=== PATIENT | female | born 1960 | race Caucasian/White ===

== ENCOUNTER 2018-05-09 14:16 | Outpatient (CLI) | payer OTHER | END 2018-05-09 14:17 | disposition home or self-care (01) | LOC: BICMAMMO 14:16 | PROVIDERS: ATTEND Obstetrics & Gynecology | DX: Z12.31 Encounter for screening mammogram for malignant neoplasm of breast (principal); R92.1 Mammographic calcification found on diagnostic imaging of breast; Z80.3 Family history of malignant neoplasm of breast | CPT/HCPCS: 77063; 77067 ==

== ENCOUNTER 2018-05-11 06:20 | Day surgery (SDC) | payer OTHER ==
[2018-05-10 10:56] VITALS: BMI 30.7
--- NOTE | 2018-05-11 05:57 | HP ---
SHORT-STAY HISTORY AND PHYSICAL HISTORY OF PRESENT ILLNESS: Ms. Nely Sethi is a very pleasant 57-year-old female, comes in for colonoscopy for colon cancer screening. The patient is a high risk for colon cancer because of the family history. The patient has nonspecific GI symptoms. Her bowel movements are regular. No evidence of any hematochezia or abdominal pain. ALLERGIES: NONE. MEDICAL ILLNESSES: 1. Seizure disorder. 2. Chronic anxiety. 3. Allergic rhinitis. 4. Colon polyp. 5. Depression. PHYSICAL EXAMINATION: VITAL SIGNS: Pulse is 73 and blood pressure 130/80. HEENT: Conjunctivae clear. CARDIOVASCULAR: First and second heart sounds heard. LUNGS: Clear to auscultation. ABDOMEN: Soft. No organomegaly. No tenderness. No masses. Bowel sounds are normal. EXTREMITIES: There is no edema. ADMITTING DIAGNOSIS: A 57-year-old female with family history of colon cancer. The patient is undergoing screening colonoscopy. Job ID: [id number]
[2018-05-11] MEDS ORDERED: PROPOFOL 200 MG/20 ML VIAL ONE (13:00)
--- NOTE | 2018-05-11 15:04 | OP ---
DATE OF PROCEDURE: 05/11/2018 OPERATIVE PROCEDURE: Colonoscopy with polypectomy, biopsy. PREOPERATIVE DIAGNOSIS: A 57-year-old female with family history of colon cancer. She is undergoing colonoscopy. POSTOPERATIVE DIAGNOSES: 1. Sessile polyp, cecum, status post snare cautery. 2. Scattered diverticular disease of sigmoid all the way to the transverse colon, mild. 3. Two small sessile sigmoid polyps. 4. Hypertrophied anal papillae. DESCRIPTION OF PROCEDURE: The patient was placed on her left lateral position and was given sedation by Anesthesia Department. A rectal exam was done before the scope was advanced into the rectum. No lesions felt on rectal exam. A [employer]ax video colonoscope was introduced into the rectum and advanced all the way to the cecum. The prep was good. The mucosa appeared normal throughout the colon with normal vascular pattern. The appendiceal orifice, ileocecal valve, no pathology seen. Over the cecum, a sessile polyp was seen. This was removed with snare cautery. The ascending colon, hepatic flexure, no pathology seen. The transverse colon, splenic flexure, descending colon, sigmoid colon shows scattered diverticula. There were two small sessile polyps seen in sigmoid colon. Both were removed with biopsy forceps. Retroflexion of scope in the rectum showed hypertrophied anal papillae. DISCHARGE PLANNING: This is a 57-year-old female with family history of colon cancer. She came for a colonoscopy. She underwent colonoscopy with polypectomy, biopsy. RECOMMENDATIONS: 1. The patient is advised to call me, if she develops abdominal pain, hematochezia. 2. In the absence of any referable symptoms, she will come back to me in 2 weeks. Job ID: [id number]
== END 2018-05-11 09:28 | disposition home or self-care (01) ==
LOC: SDC 06:20
PROVIDERS: ATTEND Internal Medicine Gastroenterology
DX: Z12.11 Encounter for screening for malignant neoplasm of colon (principal); D12.5 Benign neoplasm of sigmoid colon; K63.5 Polyp of colon; K57.30 Diverticulosis of large intestine without perforation or abscess without bleeding; K62.89 Other specified diseases of anus and rectum; G40.909 Epilepsy, unspecified, not intractable, without status epilepticus; F41.9 Anxiety disorder, unspecified; J30.9 Allergic rhinitis, unspecified; F32.9 Major depressive disorder, single episode, unspecified; Z80.0 Family history of malignant neoplasm of digestive organs; Z79.82 Long term (current) use of aspirin; Z79.899 Other long term (current) drug therapy
CPT/HCPCS: 88305; J2704

== ENCOUNTER 2019-04-10 08:02 | Outpatient (CLI) | payer OTHER ==
[2019-04-10 08:43] LABS: #Basophils 0.1 thou/uL (0.0-0.2); #Eosinphils 0.1 thou/uL (0.0-0.7); #Lymphocytes 1.5 thou/uL (1.20-3.40); #Monocytes 0.4 thou/uL (0.11-0.59); #Neutrophils 2.8 thou/uL (1.40-6.50); %Basophils 2.7 % (0.0-1.0); %Eosinophils 1.9 % (0.0-10.0); %Lymphocytes 30.9 % (21.0-51.0); %Monocytes 8.8 % (0.0-10.0); %Neutrophils 55.8 % (42.0-75.0); Mean Corpuscular HGB CONC 32.2 g/dL (32.0-36.0); Mean Corpuscular Volume 96.2 fL (78.0-98.0); Mean Platelet Volume 8.5 fL (7.4-10.4); Platelet Count 244 thou/uL (130-400); RBC Distribution Width 11.9 % (11.5-14.5); Red Blood Cell (RBC) Count 4.53 mill/uL (4.20-5.40)
--- NOTE | 2019-04-10 08:43 | ULT ---
Gallbladder ultrasound: Multiple grayscale images of right upper quadrant obtained according to protocol. INDICATION: Pain FINDINGS: Liver: Hepatic steatosis. Gallbladder: Cholelithiasis. Gallbladder wall: Normal. Spencer's Sign: Negative Common bile duct is normal. Ascites: None IMPRESSION: Cholelithiasis. Hepatic steatosis.
[2019-04-10 08:52] LABS: ALT (SGPT) 49 U/L (8-55); AST (SGOT) 33 U/L (5-34); Albumin 4.2 g/dL (3.5-5.0); Alkaline Phosphatase 81 U/L (40-110); Anion Gap 13 mmol/L (10-20); BUN (Urea Nitrogen) 17 mg/dL (9.8-20.1); Bilirubin, Total 0.8 mg/dL (0.2-1.2); Calc. Creatinine Clearance 0 mL/min (70-130); Calcium 9.2 mg/dL (7.8-10.44); Carbon Dioxide 23 mmol/L (22-29); Chloride 110 mmol/L (98-107); Estimated GFR-MDRD 73; Globulin 2.8 g/dL (2.4-3.5); Glucose 112 mg/dL (70-105); Lipase 31 U/L (8-78); Potassium 3.9 mmol/L (3.5-5.1); Sodium 142 mmol/L (136-145)
[2019-04-10 13:50] LABS: Gamma GT (GGT) 52 U/L (9-36)
== END 2019-04-10 08:03 | disposition home or self-care (01) ==
LOC: SCSULT 08:02
PROVIDERS: ATTEND Family Medicine
DX: K80.20 Calculus of gallbladder without cholecystitis without obstruction (principal); K52.9 Noninfective gastroenteritis and colitis, unspecified
CPT/HCPCS: 36415; 76705; 80053; 82977; 83690; 85025

== ENCOUNTER 2019-07-31 10:07 | Outpatient (CLI) | payer OTHER ==
--- NOTE | 2019-07-31 10:27 | RAD ---
TWO VIEW CHEST: HISTORY: Melanoma. FINDINGS: Lungs are clear. Heart and mediastinum appear normal. Osseous structures appear normal. IMPRESSION: Unremarkable chest. POS: H
== END 2019-07-31 10:08 | disposition home or self-care (01) ==
LOC: BICRAD 10:07
DX: C43.9 Malignant melanoma of skin, unspecified (principal)
CPT/HCPCS: 71046

== ENCOUNTER 2023-02-16 09:34 | Outpatient (CLI) | payer BC ==
[2023-02-16 11:01] LABS: #Basophils 0.1 10x3/uL (0.0-0.2); #Eosinphils 0.3 10x3/uL (0.0-0.5); #Monocytes 0.7 10x3/uL (0.0-1.1); #Neutrophils 4.3 10x3/uL (1.5-8.4); %Basophils 1.4 % (0.0-2.0); %Eosinophils 3.7 % (0.0-6.0); %Monocytes 9.4 % (0.0-10.0); %Neutrophils 58.4 % (40.0-75.0); Hematocrit 40.8 % (34.9-44.5); Hemoglobin 13.5 g/dL (12.0-15.5); Mean Corpuscular HGB CONC 33.1 g/dL (32.0-36.0); Mean Corpuscular Hemoglobin 30.1 pg (27.0-33.0); Mean Corpuscular Volume 90.9 fl (81.6-98.3); Mean Platelet Volume 9.9 fl (7.4-10.4); Platelet Count 332 10x3/uL (150-450); RBC Distribution Width 13.1 % (11.5-14.5); Red Blood Cell (RBC) Count 4.49 10x6/uL (3.90-5.03); White Blood Cell (WBC) Count 7.4 10x3/uL (3.5-10.5)
[2023-02-16 11:22] LABS: Prothrombin Time 10.3 sec (9.5-12.1)
[2023-02-16 11:27] LABS: Anion Gap 14 mmol/L (10-20); BUN (Urea Nitrogen) 17 mg/dL (9.8-20.1); Calc. Creatinine Clearance 0 mL/min (70-130); Calcium 9.8 mg/dL (7.8-10.44); Carbon Dioxide 29 mmol/L (23-31); Chloride 100 mmol/L (98-107); Estimated GFR 75; Glucose 92 mg/dL (80-115); Potassium 4.3 mmol/L (3.5-5.1); Sodium 139 mmol/L (136-145)
== END 2023-02-16 09:35 | disposition home or self-care (01) ==
LOC: LABBT 09:34
PROVIDERS: ATTEND Orthopaedic Surgery
DX: Z01.818 Encounter for other preprocedural examination (principal); M17.11 Unilateral primary osteoarthritis, right knee
CPT/HCPCS: 80048; 85025; 85610; 87081; 93005; 93010

== ENCOUNTER 2023-02-21 05:28 | Observation (INO) | payer BC ==
[2023-02-16 10:23] VITALS: BMI 29.6
[2023-02-21] MEDS ORDERED: Vancomycin (BATCH) 1.5 GRAM/300 ML BAG ONE (05:51)
[2023-02-21] MEDS ORDERED: Sodium Chloride 0.9% 100 ML ONE ×2 (05:51→06:52)
[2023-02-21] MEDS ORDERED: Tranexamic Acid 1,000 MG/10 ML VIAL ONE (05:51)
[2023-02-21] MEDS ORDERED: fentaNYL 50 mcg/mL 1 mL Vial ONE ×4 (06:19→10:36)
[2023-02-21] MEDS ORDERED: Midazolam HCl 2 mg/2 ml Vial ONE ×2 (06:20→06:39)
[2023-02-21] MEDS ORDERED: Bupivacaine PF 0.5% 30 ML VIAL ONE ×2 (06:26→06:39)
[2023-02-21] MEDS ORDERED: CEFAZOLIN 2 GM VIAL ONE (06:52)
[2023-02-21] MEDS ORDERED: fentaNYL 50 mcg/mL 1 mL Vial SLOW IVP PRN ×3 (06:56→07:39)
[2023-02-21] MEDS ORDERED: Zolpidem Tartrate 5 MG TAB PO PRN ×2 (06:56→07:45)
[2023-02-21] MEDS ORDERED: HYDROcodone/Acetaminophen 10/325 mg Tablet PO PRN ×3 (06:56→07:45)
[2023-02-21] MEDS ORDERED: Promethazine HCl 25 MG/ML VIAL IM PRN ×3 (06:56→07:59)
[2023-02-21] MEDS ORDERED: Ondansetron PF 4 MG/2 ML Vial IVP PRN ×2 (06:56→07:45)
[2023-02-21] MEDS ORDERED: Acetaminophen 325 MG TAB PO PRN (06:56)
[2023-02-21] MEDS ORDERED: diphenhydrAMINE 25 MG CAP PO PRN (06:56)
[2023-02-21] MEDS ORDERED: Azelastine 137 MCG/NASAL Spray 30 ML NS PRN (06:59)
[2023-02-21] MEDS ORDERED: Albuterol 200 PUFF (6.7GM INHALER) INH PRN (06:59)
[2023-02-21] MEDS ORDERED: Lorazepam 0.5 MG TAB PO PRN (06:59)
[2023-02-21] MEDS ORDERED: Propofol 500 MG/50 ML VIAL ONE (07:09)
[2023-02-21] MEDS ORDERED: ePHEDrine Sulfate 50 MG/10 ML VIAL ONE (07:33)
[2023-02-21] MEDS ORDERED: Ketorolac Tromethamine 30 MG/ML VIAL ONE (07:33)
[2023-02-21] MEDS ORDERED: Ondansetron PF 4 MG/2 ML Vial ONE (07:33)
[2023-02-21] MEDS ORDERED: Bupivacaine HCl 0.5%/Epinephrine 1:200,000/PF 30 ml Vial ONE (07:33)
[2023-02-21] MEDS ORDERED: PROPOFOL 200 MG/20 ML VIAL ONE (07:33)
[2023-02-21] MEDS ORDERED: traMADol HCl 50 MG TAB PO PRN ×2 (07:45)
[2023-02-21] MEDS ORDERED: Ropivacaine 0.2% 550 ML 550 ML NERVE BLCK SCH (07:45)
[2023-02-21] MEDS ORDERED: Ondansetron HCl/PF 4 MG/2 ML Vial IVP PRN (07:59)
[2023-02-21] MEDS ORDERED: Meperidine HCl/PF 25 MG/ML VIAL SLOW IVP PRN (07:59)
[2023-02-21] MEDS ORDERED: HYDROmorphone 2 MG/ML VIAL SLOW IVP PRN (07:59)
[2023-02-21] MEDS ORDERED: PROPOFOL 20 ML ONE (08:02)
[2023-02-21] MEDS: Potassium Chloride 10 MEQ TAB PO SCH (11:07)
[2023-02-21] MEDS: Furosemide 20 MG TAB PO SCH (11:08)
[2023-02-21] MEDS: Hydrochlorothiazide 25 MG TAB PO SCH (11:08)
[2023-02-21] MEDS: Losartan 25 MG TAB PO SCH (11:08)
[2023-02-21] MEDS: Aspirin 81 mg Enteric Coated Tablet PO SCH ×2 (11:08→20:58)
[2023-02-21] MEDS: Atorvastatin Calcium 20 MG TAB PO SCH (11:08)
[2023-02-21] MEDS: Gabapentin 300 MG CAP PO SCH ×3 (11:08→20:58)
[2023-02-21] MEDS: Montelukast Sodium 10 mg Tablet PO SCH (11:09)
[2023-02-21] MEDS: Ketorolac Tromethamine 30 MG/ML VIAL IVP SCH ×3 (12:32→23:06)
[2023-02-21] MEDS: Sodium Chloride 0.9% 1,000 ML IV SCH ×2 (13:14→23:04)
[2023-02-21] MEDS ORDERED: Ketorolac Tromethamine 30 MG/ML VIAL IVP SCH (14:00)
[2023-02-21] MEDS: HYDROcodone/Acetaminophen 10/325 mg Tablet PO PRN ×2 (15:13→20:59)
[2023-02-21] MEDS: CEFAZOLIN 2 GM in Sodium Chloride 0.9% 100 ML IVPB SCH ×2 (15:14→23:06)
[2023-02-21] MEDS ORDERED: traZODone HCl 50 MG TAB PO SCH (21:00)
[2023-02-22] MEDS: Sodium Chloride 0.9% 1,000 ML IV SCH (03:09)
[2023-02-22] MEDS: Ketorolac Tromethamine 30 MG/ML VIAL IVP SCH ×2 (05:41→12:25)
[2023-02-22 06:47] LABS: Hematocrit 33.7 % (36.0-47.0); Hemoglobin 10.7 g/dL (12.0-16.0); Mean Corpuscular HGB CONC 31.8 g/dL (32.0-36.0); Mean Corpuscular Hemoglobin 30.4 pg (27.0-31.0); Mean Corpuscular Volume 95.7 fl (78.0-98.0); Mean Platelet Volume 9.5 fL (7.4-10.4); Platelet Count 202 10x3/uL (130-400); RBC Distribution Width 13.3 % (11.5-14.5); Red Blood Cell (RBC) Count 3.52 mill/uL (4.20-5.40)
[2023-02-22] MEDS ORDERED: Ferrous Gluconate 324 MG TAB PO SCH (08:00)
[2023-02-22] MEDS ORDERED: Senokot S 8.6-50 MG TAB PO SCH (09:00)
[2023-02-22] MEDS ORDERED: Multivitamin W/ Minerals 1 TAB PO SCH (09:00)
[2023-02-22] MEDS: HYDROcodone/Acetaminophen 10/325 mg Tablet PO PRN (09:59)
[2023-02-22] MEDS: Aspirin 81 mg Enteric Coated Tablet PO SCH (10:00)
[2023-02-22] MEDS: Losartan 25 MG TAB PO SCH (10:01)
[2023-02-22] MEDS: Hydrochlorothiazide 25 MG TAB PO SCH (10:02)
[2023-02-22] MEDS: Montelukast Sodium 10 mg Tablet PO SCH (10:02)
[2023-02-22] MEDS: Potassium Chloride 10 MEQ TAB PO SCH (10:02)
[2023-02-22] MEDS: Furosemide 20 MG TAB PO SCH (10:02)
[2023-02-22] MEDS: Gabapentin 300 MG CAP PO SCH (10:03)
[2023-02-22] MEDS: Atorvastatin Calcium 20 MG TAB PO SCH (10:03)
[2023-02-22 11:50] VITALS: BP 132/74; TEMP 98.4
== END 2023-02-22 12:30 | disposition home or self-care (01) ==
LOC: SDC 05:28 → SURG A 10:07
PROVIDERS: ADMIT Orthopaedic Surgery; ATTEND Orthopaedic Surgery
PROC: 0SRC0JZ Replacement of Right Knee Joint with Synthetic Substitute, Open Approach (ICD-10-PCS; principal; 2023-02-21)
DX: M17.11 Unilateral primary osteoarthritis, right knee (principal); Z87.891 Personal history of nicotine dependence
CPT/HCPCS: 36415; 85027; A4306; C1776; J1885; J2250; J2405; J2704; J2795; J3010; J3370; J3490; S0020

== ENCOUNTER 2023-07-27 13:18 | Outpatient (CLI) | payer BC ==
[2023-07-27 14:26] LABS: #Basophils 0.1 10x3/uL (0.0-0.2); #Eosinphils 0.2 10x3/uL (0.0-0.5); #Monocytes 0.6 10x3/uL (0.0-1.1); #Neutrophils 3.3 10x3/uL (1.5-8.4); %Basophils 1.8 % (0.0-2.0); %Eosinophils 2.9 % (0.0-6.0); %Lymphocytes 33.7 % (18.0-47.0); %Monocytes 8.9 % (0.0-10.0); %Neutrophils 52.5 % (40.0-75.0); Hematocrit 39.5 % (34.9-44.5); Hemoglobin 12.9 g/dL (12.0-15.5); Mean Corpuscular HGB CONC 32.7 g/dL (32.0-36.0); Mean Corpuscular Hemoglobin 28.9 pg (27.0-33.0); Mean Corpuscular Volume 88.4 fl (81.6-98.3); Mean Platelet Volume 9.5 fl (7.4-10.4); Platelet Count 308 10x3/uL (150-450); RBC Distribution Width 13.2 % (11.5-14.5); Red Blood Cell (RBC) Count 4.47 10x6/uL (3.90-5.03); White Blood Cell (WBC) Count 6.2 10x3/uL (3.5-10.5)
[2023-07-27 14:35] LABS: Prothrombin Time 10.4 sec (9.5-12.1)
[2023-07-27 14:41] LABS: Anion Gap 13 mmol/L (10-20); BUN (Urea Nitrogen) 17 mg/dL (9.8-20.1); Calc. Creatinine Clearance 0 mL/min (70-130); Calcium 9.6 mg/dL (7.8-10.44); Carbon Dioxide 28 mmol/L (23-31); Chloride 102 mmol/L (98-107); Estimated GFR 80; Glucose 123 mg/dL (80-115); Potassium 3.5 mmol/L (3.5-5.1); Sodium 139 mmol/L (136-145)
== END 2023-07-27 13:19 | disposition home or self-care (01) ==
LOC: LABBT 13:18
PROVIDERS: ATTEND Orthopaedic Surgery
DX: Z01.818 Encounter for other preprocedural examination (principal); M17.12 Unilateral primary osteoarthritis, left knee
CPT/HCPCS: 80048; 85025; 85610; 87081; 93005; 93010

== ENCOUNTER 2023-07-31 05:35 | Observation (INO) | payer BC ==
[2023-07-31] MEDS ORDERED: Vancomycin (BATCH) 1.5 GM/300 ML BAG ONE (06:09)
[2023-07-31] MEDS ORDERED: Tranexamic Acid 1,000 MG/10 ML VIAL ONE (06:09)
[2023-07-31] MEDS ORDERED: Sodium Chloride 0.9% 100 ML ONE ×2 (06:09→06:51)
[2023-07-31] MEDS ORDERED: Famotidine/PF 20 mg/2ml Vial ONE (06:15)
[2023-07-31] MEDS ORDERED: Midazolam HCl 2 mg/2 ml Vial ONE (06:20)
[2023-07-31] MEDS ORDERED: PROPOFOL 20 ML ONE (06:20)
[2023-07-31] MEDS ORDERED: fentaNYL PF 100 MCG/2 ML SYRINGE ONE (06:20)
[2023-07-31] MEDS ORDERED: Lidocaine 1% PF 5 ML VIAL ONE (06:21)
[2023-07-31] MEDS ORDERED: diphenhydrAMINE 25 MG CAP PO PRN (06:48)
[2023-07-31] MEDS ORDERED: Zolpidem Tartrate 5 MG TAB PO PRN (06:48)
[2023-07-31] MEDS ORDERED: Promethazine HCl 25 MG/ML VIAL IM PRN ×3 (06:48→08:15)
[2023-07-31] MEDS ORDERED: Acetaminophen 325 MG TAB PO PRN (06:48)
[2023-07-31] MEDS ORDERED: fentaNYL 50 mcg/mL 1 mL Vial SLOW IVP PRN ×2 (06:48→07:46)
[2023-07-31] MEDS ORDERED: Ondansetron PF 4 MG/2 ML Vial IVP PRN ×2 (06:48→07:45)
[2023-07-31] MEDS ORDERED: Non-Formulary Item 1 EACH (Celecoxib [Celebrex] 200 MG Capsule) PO PRN (06:50)
[2023-07-31] MEDS ORDERED: Albuterol 200 PUFF (6.7GM INHALER) INH PRN (06:50)
[2023-07-31] MEDS ORDERED: Lorazepam 0.5 MG TAB PO PRN (06:50)
[2023-07-31] MEDS ORDERED: CEFAZOLIN 2 GM VIAL ONE (06:51)
[2023-07-31] MEDS ORDERED: Bupivacaine PF 0.5% 30 ML VIAL ONE ×2 (06:51→08:40)
[2023-07-31] MEDS ORDERED: oxyCODONE/Acetaminophen 5 mg/325 mg Tablet PO PRN (06:55)
[2023-07-31] MEDS ORDERED: CeleCOXIB 100 MG CAP PO PRN (07:10)
[2023-07-31] MEDS ORDERED: fentaNYL 50 mcg/mL 1 mL Vial ONE ×5 (07:14→10:25)
[2023-07-31] MEDS ORDERED: ePHEDrine Sulfate 50 MG/10 ML VIAL ONE (07:35)
[2023-07-31] MEDS ORDERED: oxyCODONE 5 MG TAB PO PRN (07:45)
[2023-07-31] MEDS ORDERED: traMADol HCl 50 MG TAB PO PRN ×2 (07:45)
[2023-07-31] MEDS ORDERED: Ropivacaine 0.2% 550 ML 550 ML NERVE BLCK SCH (07:45)
[2023-07-31] MEDS ORDERED: Dexamethasone 4 mg/ml Vial ONE (07:59)
[2023-07-31] MEDS ORDERED: Ketorolac Tromethamine 30 MG (1 mL) VIAL ONE (07:59)
[2023-07-31] MEDS ORDERED: Ondansetron PF 4 MG/2 ML Vial ONE (07:59)
[2023-07-31] MEDS ORDERED: Meperidine HCl/PF 25 MG/ML VIAL SLOW IVP PRN (08:15)
[2023-07-31] MEDS ORDERED: Ondansetron HCl/PF 4 MG/2 ML Vial IVP PRN (08:15)
[2023-07-31] MEDS ORDERED: HYDROmorphone 2 MG/ML VIAL SLOW IVP PRN (08:15)
[2023-07-31] MEDS ORDERED: Non-Formulary Item 1 EACH (Multivit-Min/Iron/Folic/Lutein [Centrum Silver Women] 1 TABLET PO SCH (09:00)
[2023-07-31] MEDS ORDERED: Azelastine 137 MCG/NASAL Spray 30 ML NS SCH (09:00)
[2023-07-31] MEDS ORDERED: Gabapentin 300 MG CAP PO SCH (09:00)
[2023-07-31] MEDS ORDERED: Aspirin 81 mg Enteric Coated Tablet PO SCH (09:00)
[2023-07-31] MEDS ORDERED: Non-Formulary Item 1 EACH (Cetirizine Hcl [All Day Allergy Relief] 10 MG Capsule) PO SCH (09:00)
[2023-07-31] MEDS ORDERED: Non-Formulary Item 1 EACH (Olmesartan/Hydrochlorothiazide [Olmesartan-Hctz 20-12.5 Mg Tab PO SCH (09:00)
[2023-07-31] MEDS ORDERED: OLMESARTAN HCTZ PO SCH (09:00)
[2023-07-31] MEDS ORDERED: Non-Formulary Item 1 EACH (Omeprazole [Omeprazole] 20 MG Tablet.Dr) PO SCH (09:00)
[2023-07-31] MEDS: Ferrous Gluconate 324 MG TAB PO SCH (12:35)
[2023-07-31] MEDS: Azelastine 137 MCG/NASAL Spray 30 ML NS SCH (12:35)
[2023-07-31] MEDS: Aspirin 81 mg Enteric Coated Tablet PO SCH (12:35)
[2023-07-31] MEDS: Furosemide 20 MG TAB PO SCH (12:35)
[2023-07-31] MEDS: Gabapentin 300 MG CAP PO SCH ×2 (12:35→21:08)
[2023-07-31] MEDS: Atorvastatin Calcium 20 MG TAB PO SCH (12:35)
[2023-07-31] MEDS: Senokot S 8.6-50 MG TAB PO SCH (12:36)
[2023-07-31] MEDS: Loratadine 10 MG TAB PO SCH (12:36)
[2023-07-31] MEDS: Potassium Chloride 10 MEQ TAB PO SCH (12:36)
[2023-07-31] MEDS: Multivitamin W/ Minerals 1 TAB PO SCH (12:36)
[2023-07-31] MEDS: Sodium Chloride 0.9% 1,000 ML IV SCH (12:37)
[2023-07-31] MEDS: Acetaminophen 500 MG TAB PO SCH (12:43)
[2023-07-31] MEDS: Ketorolac Tromethamine 30 MG (1 mL) VIAL IVP SCH (12:44)
[2023-07-31 13:30] VITALS: BMI 29.6
[2023-07-31] MEDS ORDERED: Ketorolac Tromethamine 30 MG (1 mL) VIAL IVP SCH (14:00)
[2023-07-31] MEDS: CEFAZOLIN 2 GM in Sodium Chloride 0.9% 100 ML IVPB SCH (15:09)
[2023-07-31] MEDS: oxyCODONE 5 MG TAB PO PRN (15:15)
[2023-07-31] MEDS: Montelukast Sodium 10 mg Tablet PO SCH (21:10)
[2023-07-31] MEDS: traZODone HCl 50 MG TAB PO SCH (21:10)
[2023-07-31] MEDS: Zolpidem Tartrate 5 MG TAB PO PRN (23:37)
[2023-08-01 04:59] LABS: Hematocrit 31.7 % (36.0-47.0); Hemoglobin 10.1 g/dL (12.0-16.0); Mean Corpuscular HGB CONC 31.9 g/dL (32.0-36.0); Mean Corpuscular Hemoglobin 29.3 pg (27.0-31.0); Mean Corpuscular Volume 91.9 fl (78.0-98.0); Mean Platelet Volume 10.3 fL (7.4-10.4); Platelet Count 224 10x3/uL (130-400); RBC Distribution Width 13.5 % (11.5-14.5); Red Blood Cell (RBC) Count 3.45 mill/uL (4.20-5.40); White Blood Cell (WBC) Count 9.1 10x3/uL (4.8-10.8)
[2023-08-01 08:34] VITALS: BP 137/85; TEMP 98.2
[2023-08-01] MEDS: Hydrochlorothiazide 25 MG TAB PO SCH (09:29)
[2023-08-01] MEDS: Losartan 25 MG TAB PO SCH (09:29)
== END 2023-08-01 10:50 | disposition home or self-care (01) ==
LOC: SDC 05:35 → SURG B 06:48
PROVIDERS: ADMIT Orthopaedic Surgery; ATTEND Orthopaedic Surgery
PROC: 0SRD0JZ Replacement of Left Knee Joint with Synthetic Substitute, Open Approach (ICD-10-PCS; principal; 2023-08-01)
DX: M17.12 Unilateral primary osteoarthritis, left knee (principal); G40.909 Epilepsy, unspecified, not intractable, without status epilepticus; G43.909 Migraine, unspecified, not intractable, without status migrainosus; J45.909 Unspecified asthma, uncomplicated; Z80.0 Family history of malignant neoplasm of digestive organs; Z98.890 Other specified postprocedural states; Z87.891 Personal history of nicotine dependence; Z79.899 Other long term (current) drug therapy; Z96.651 Presence of right artificial knee joint
CPT/HCPCS: 36415; 85027; A4306; C1776; J0665; J1100; J1885; J2250; J2405; J2704; J2795; J3010; J3370; J3490; S0028

== ENCOUNTER 2025-05-27 14:23 | Outpatient (CLI) | payer BC | END 2025-05-27 14:24 | disposition home or self-care (01) | LOC: BICMAMMO 14:23 | PROVIDERS: ATTEND Physician Assistant | DX: Z12.31 Encounter for screening mammogram for malignant neoplasm of breast (principal); Z78.0 Asymptomatic menopausal state; Z80.3 Family history of malignant neoplasm of breast; M85.851 Other specified disorders of bone density and structure, right thigh | CPT/HCPCS: 77063; 77067; 77080 ==